=== PATIENT | female | born 1990 | race Caucasian/White ===

== ENCOUNTER → 2021-12-22 09:41 | Outpatient (CLI) | payer OTHER, SELFPAY ==
[2021-12-22 18:46] LABS: Add Manual Diff / Slide Review NO; Basophils Absolute Auto 0 /uL (0-100); Basophils Percent Auto 0.5 % (0-2); Eosinophils Absolute Auto 0 /uL (0-450); Hematocrit 41.9 % (36-46); Lymphocytes Absolute Auto 1200 /uL (1100-4500); Lymphocytes Percent Auto 28.6 % (25-40); Mean Corpuscular HGB Conc 33.4 % (30-36); Mean Corpuscular Hemoglobin 28.8 PG (26-34); Mean Corpuscular Volume 86.3 fL (80-100); Monocytes Absolute Auto 300 /uL (0-900); Monocytes Percent Auto 8.3 % (3-14); Neutrophils Absolute Auto 2600 /uL (1500-7000); Neutrophils Percent Auto 61.6 % (50-75); Platelet Count 336 X10^3/uL (150-400); Red Blood Cell Count 4.85 X10^6/uL (4.0-5.2); Red Cell Distribution Width 12.6 % (11.6-14.8); White Blood Cell Count 4.2 X10^3/uL (4.5-11.0)
[2021-12-22 19:11] LABS: Alanine Aminotransferase 43 IU/L (<35); Albumin 4.2 g/dL (3.5-5.0); Albumin Globulin Ratio 1.7 (1.0-2.8); Alkaline Phosphatase 59 U/L (38-126); Aspartate Aminotransferase 36 IU/L (14-36); BUN Creatinine Ratio 24.6 (6-22); Bilirubin Total 0.5 mg/dL (0.2-1.3); Blood Urea Nitrogen 14 mg/dL (7-17); Calcium 9.2 mg/dL (8.4-10.2); Carbon Dioxide 25 mmol/L (22-32); Chloride 104 mmol/L (98-107); Estimated Glomerular Filt Rate > 60 mL/min (>60); Globulin 2.5 g/dL (1.7-4.1); Glucose 77 mg/dL (70-100); HEMOLYSIS 17 (0-50); Potassium 4.4 mmol/L (3.4-5.1); Sodium 141 mmol/L (137-145); Total Protein 6.7 g/dL (6.3-8.2)
[2021-12-22 19:50] LABS: TSH w/ Reflex to FT4 1.77 uIU/mL (0.47-4.68)
== END ==
PROVIDERS: PCP Family Medicine; Visit Provider Physician Assistant
DX: B37.9 Candidiasis, unspecified (principal); G44.40 Drug-induced headache, not elsewhere classified, not intractable; R53.83 Other fatigue
CPT/HCPCS: 80053; 84443; 85025

== ENCOUNTER → 2022-07-26 10:24 | Outpatient (CLI) | payer OTHER, SELFPAY ==
[2022-07-26 19:13] LABS: Add Manual Diff / Slide Review NO; Basophils Absolute Auto 0 /uL (0-100); Basophils Percent Auto 0.7 % (0-2); Eosinophils Absolute Auto 0 /uL (0-450); Eosinophils Percent Auto 0.9 % (2-4); Hematocrit 40.7 % (36-46); Hemoglobin 13.5 g/dL (12.0-16.0); Lymphocytes Absolute Auto 1300 /uL (1100-4500); Lymphocytes Percent Auto 34.4 % (25-40); Mean Corpuscular HGB Conc 33.3 % (30-36); Mean Corpuscular Hemoglobin 28.2 PG (26-34); Mean Corpuscular Volume 84.8 fL (80-100); Monocytes Absolute Auto 400 /uL (0-900); Neutrophils Absolute Auto 2000 /uL (1500-7000); Platelet Count 336 X10^3/uL (150-400); Red Cell Distribution Width 12.6 % (11.6-14.8); White Blood Cell Count 3.8 X10^3/uL (4.5-11.0)
[2022-07-26 19:30] LABS: Alanine Aminotransferase 45 IU/L (<35); Albumin 4.1 g/dL (3.5-5.0); Albumin Globulin Ratio 1.5 (1.0-2.8); Alkaline Phosphatase 60 U/L (38-126); Aspartate Aminotransferase 37 IU/L (14-36); BUN Creatinine Ratio 17.2 (6-22); Bilirubin Total 0.4 mg/dL (0.2-1.3); Blood Urea Nitrogen 10 mg/dL (7-17); Calcium 8.8 mg/dL (8.4-10.2); Carbon Dioxide 26 mmol/L (22-32); Chloride 103 mmol/L (98-107); Estimated Glomerular Filt Rate > 60 mL/min (>60); Globulin 2.7 g/dL (1.7-4.1); Glucose 75 mg/dL (70-100); HEMOLYSIS < 15 (0-50); Potassium 4.1 mmol/L (3.4-5.1); Sodium 137 mmol/L (137-145); Total Protein 6.8 g/dL (6.3-8.2)
[2022-07-26 20:39] LABS: Ferritin 5 ng/mL (6-137)
== END ==
PROVIDERS: PCP Family Medicine; Visit Provider Physician Assistant
DX: N92.1 Excessive and frequent menstruation with irregular cycle (principal)
CPT/HCPCS: 80053; 82728; 85025

== ENCOUNTER → 2022-08-22 08:54 | Outpatient (CLI) | payer OTHER, SELFPAY ==
--- NOTE | 2022-08-22 08:55 | DI.US.S_ITS ---
PROCEDURE: US ABDOMEN LIMITED INDICATIONS: ABNORMAL LFTS TECHNIQUE: Real-time focused scanning was performed of the abdomen, with image documentation. COMPARISON: None. FINDINGS: The liver is normal in size and demonstrates normal overall echogenicity. Within the left lobe of the liver, there is a 10 x 9 x 10 mm hyperechoic nodule without shadowing. No abnormal vascularity can be seen. No findings of gallstones or sludge are seen. The gallbladder wall is not thickened, measuring 3 mm or less. No specific pericholecystic fluid is seen. The sonographic Singh sign is negative. There is no biliary dilatation, the common bile duct measures 4 mm. No significant pancreatic abnormality is seen on these images. IMPRESSION: No significant abnormality is seen to explain the patient's presenting history. 1 cm apparent liver hemangioma within the left lobe. Dictated by: Lonny Khanna M.D. on 08/22/2022 at 13:59 Approved by: Lonny Khanna M.D. on 08/22/2022 at 14:00
[2022-08-22 10:47] LABS: HEMOLYSIS < 15 (0-50); Iron 55 ug/dL (37-170)
[2022-08-22 10:59] LABS: Percent Iron Saturation 15 % (15-50); Total Iron Binding Capacity 359 ug/dL (265-497); Transferrin 277 mg/dL (206-381)
[2022-08-22 11:18] LABS: TSH w/ Reflex to FT4 2.65 uIU/mL (0.47-4.68)
[2022-08-22 11:37] LABS: Hep C Virus Ab w/Reflex Quant NEGATIVE s/c (NEGATIVE)
[2022-08-23 04:57] LABS: Hepatitis B Core Antibody Negative (Negative)
[2022-08-23 07:07] LABS: HBsAg Screen Negative (Negative); Hepatitis A Antibody IgM Negative (Negative); Hepatitis B Core Antibody IgM Negative (Negative); Hepatitis C Antibody <0.1 s/co ratio (0.0-0.9)
== END ==
PROVIDERS: PCP Physician Assistant; Referring Provider Physician Assistant; Visit Provider Physician Assistant
DX: R74.8 Abnormal levels of other serum enzymes (principal)
CPT/HCPCS: 36415; 76705; 80074; 83540; 83550; 84443; 86704; 86803

== ENCOUNTER → 2022-10-09 14:19 | Outpatient (CLI) | payer OTHER, SELFPAY ==
[2022-10-09 19:01] LABS: Add Manual Diff / Slide Review NO; Basophils Absolute Auto 0 /uL (0-100); Basophils Percent Auto 0.4 % (0-2); Eosinophils Absolute Auto 100 /uL (0-450); Eosinophils Percent Auto 1.2 % (2-4); Hematocrit 39.7 % (36-46); Hemoglobin 13.2 g/dL (12.0-16.0); Lymphocytes Absolute Auto 1200 /uL (1100-4500); Lymphocytes Percent Auto 27.3 % (25-40); Mean Corpuscular HGB Conc 33.3 % (30-36); Mean Corpuscular Hemoglobin 27.6 PG (26-34); Mean Corpuscular Volume 82.8 fL (80-100); Monocytes Absolute Auto 300 /uL (0-900); Monocytes Percent Auto 7.7 % (3-14); Neutrophils Absolute Auto 2900 /uL (1500-7000); Neutrophils Percent Auto 63.4 % (50-75); Platelet Count 324 X10^3/uL (150-400); White Blood Cell Count 4.5 X10^3/uL (4.5-11.0)
[2022-10-09 22:28] LABS: Alanine Aminotransferase 41 IU/L (<35); Albumin Globulin Ratio 1.5 (1.0-2.8); Alkaline Phosphatase 58 U/L (38-126); Aspartate Aminotransferase 35 IU/L (14-36); BUN Creatinine Ratio 22.6 (6-22); Bilirubin Total 0.2 mg/dL (0.2-1.3); Blood Urea Nitrogen 12 mg/dL (7-17); Calcium 9.1 mg/dL (8.4-10.2); Carbon Dioxide 25 mmol/L (22-32); Chloride 102 mmol/L (98-107); Estimated Glomerular Filt Rate > 60 mL/min (>60); Globulin 2.7 g/dL (1.7-4.1); Glucose 110 mg/dL (70-100); HEMOLYSIS < 15 (0-50); Potassium 3.9 mmol/L (3.4-5.1); Sodium 137 mmol/L (137-145); Total Protein 6.7 g/dL (6.3-8.2)
[2022-10-09 23:03] LABS: Ferritin 6 ng/mL (6-137)
== END ==
PROVIDERS: PCP Physician Assistant; Visit Provider Physician Assistant
DX: G44.40 Drug-induced headache, not elsewhere classified, not intractable (principal); R74.8 Abnormal levels of other serum enzymes; R79.0 Abnormal level of blood mineral
CPT/HCPCS: 80053; 82728; 85025

== ENCOUNTER → 2022-11-09 14:10 | Outpatient (CLI) | payer OTHER, SELFPAY ==
[2022-11-09 20:20] LABS: Urine N gonorrhoeae NOT DETECTED
[2022-11-09 20:25] LABS: Urine Chlamydia NOT DETECTED
== END ==
PROVIDERS: PCP Physician Assistant; Visit Provider Specialist
DX: Z34.81 Encounter for supervision of other normal pregnancy, first trimester (principal); R74.8 Abnormal levels of other serum enzymes
CPT/HCPCS: 87086; 87491; 87591

== ENCOUNTER → 2022-11-09 15:06 | Outpatient (CLI) | payer OTHER, SELFPAY ==
[2022-11-09 15:57] LABS: Add Manual Diff / Slide Review NO; Basophils Absolute Auto 0 /uL (0-100); Basophils Percent Auto 0.2 % (0-2); Eosinophils Absolute Auto 100 /uL (0-450); Eosinophils Percent Auto 0.9 % (2-4); Hematocrit 40.1 % (36-46); Hemoglobin 13.8 g/dL (12.0-16.0); Lymphocytes Absolute Auto 1300 /uL (1100-4500); Mean Corpuscular HGB Conc 34.4 % (30-36); Mean Corpuscular Hemoglobin 28.3 PG (26-34); Mean Corpuscular Volume 82.2 fL (80-100); Monocytes Absolute Auto 500 /uL (0-900); Monocytes Percent Auto 7.8 % (3-14); Neutrophils Absolute Auto 4200 /uL (1500-7000); Neutrophils Percent Auto 69.1 % (50-75); Platelet Count 305 X10^3/uL (150-400); Red Blood Cell Count 4.87 X10^6/uL (4.0-5.2); Red Cell Distribution Width 13.6 % (11.6-14.8)
[2022-11-09 16:24] LABS: Alanine Aminotransferase 44 IU/L (<35); Aspartate Aminotransferase 40 IU/L (14-36); BUN Creatinine Ratio 17.9 (6-22); Blood Urea Nitrogen 7 mg/dL (7-17); Estimated Glomerular Filt Rate > 60 mL/min (>60)
[2022-11-09 17:03] LABS: Hepatitis B Surface Antigen NEGATIVE s/c (NEGATIVE)
[2022-11-09 17:16] LABS: HIV 1 & 2 Ab/Ag 4th Gen Combo NEGATIVE (NEGATIVE); Hep C Virus Ab w/Reflex Quant NEGATIVE s/c (NEGATIVE)
[2022-11-10 08:36] LABS: Varicella IgG Antibody 1534 index (Immune >165)
[2022-11-11 09:36] LABS: RPR Screen Non Reactive (Non Reactive)
== END ==
PROVIDERS: Obstetrics & Gynecology; PCP Physician Assistant; Referring Provider Specialist; Visit Provider Specialist
DX: O99.891 Other specified diseases and conditions complicating pregnancy (principal); R74.8 Abnormal levels of other serum enzymes
CPT/HCPCS: 36415; 80055; 82565; 84450; 84460; 84520; 86787; 86803; 86850; 86900; 86901; 87086; 87389; 87491; 87591

== ENCOUNTER → 2023-01-11 15:44 | Outpatient (CLI) | payer OTHER, SELFPAY ==
[2023-01-13 18:42] LABS: AFP Value 25.2 ng/mL (.); Gest Age on Col Date 16.7 weeks (.); Insulin Dep Diabetes No (.); OSBR Risk 1IN 10000 (.); Results Report (.); Test Results *Screen Negative* (.)
== END ==
PROVIDERS: Obstetrics & Gynecology; PCP Physician Assistant; Referring Provider Obstetrics & Gynecology; Visit Provider Obstetrics & Gynecology
DX: Z34.82 Encounter for supervision of other normal pregnancy, second trimester (principal); Z3A.16 16 weeks gestation of pregnancy
CPT/HCPCS: 36415; 82105

== ENCOUNTER → 2023-02-07 15:48 | Outpatient (CLI) | payer OTHER, SELFPAY ==
--- NOTE | 2023-02-07 16:34 | DI.US.S_ITS ---
PROCEDURE: US OB >= 14 WEEKS FETUS INDICATIONS: anatomy scan OUTSIDE/PRIOR DATING DATA: First dating scan (date and location): 11/09/2022 Estimated date of delivery (STELLA) from first dating scan: 06/25/2023 The calculations are made using the working STELLA of 06/23/2023 TECHNIQUE: Real-time scanning was performed of the fetus, with image documentation and biometric measurements. Endovaginal scanning: Not performed COMPARISON: [facility], , OB <= 14 WEEKS FETUS, 11/09/2022, 14:58. FINDINGS: General: A single living intrauterine gestation is present. Presentation: Vertex Placenta: Placental position is posterior, without previa. Amniotic fluid index: 13.1 cm, normal range is 5-24 cm. Single deepest vertical pocket is 3.8 cm. heart rate: 152 beats per minute. Maternal cervical canal: 3.5 cm long. Normal lower limit is 2.5 cm. biometrics: Biparietal diameter: 4.9 cm, 20 weeks 5 days Head circumference: 70.5 cm, 20 weeks 0 days Abdominal circumference: 14.7 cm, 20 weeks 0 days Femur length: 3.5 cm, 20 weeks 1 day Clinically estimated gestational age: 20 weeks 4 days Composite gestational age from present scan: 20 weeks 2 days Estimated weight and percentile: 331 g, 21st percentile Anatomic survey: Neuro: Ventricles are non-dilated at less than 10 mm. Cisterna magna is normal at 3-11 mm. Cerebellum is normal in size and morphology. Nuchal skin fold: Normal at less than 6 mm between 14-21 weeks gestational age. Face: Nose and lips, facial profile are normal. Spine: No evidence for spina bifida. Heart: 4-chambered heart is present, with normal ventricular outflow tracts. Diaphragm: Diaphragm is intact. Stomach: Left-sided stomach is present. Kidneys: No hydronephrosis. Normal is less than 5 mm in 2nd trimester, less than 7 mm in 3rd trimester. Cord: 3-vessel cord has orthotopic insertion. Bladder: Normal in size. Extremities: All 4 extremities identified. Maternal intrauterine fibroid noted in the anterior uterus measuring 4.1 x 1.8 x 3.2 cm. IMPRESSION: 1. Single live intrauterine . 2. anatomic survey is within normal limits. We strive to produce accurate, complete, and clear reports of imaging services. To assist us in improving patient care, this report was composed using standard report templates and voice recognition software. Therefore, it may contain abnormal punctuation, insertions and/or omissions. Occasional wrong-word or sound-alike substitutions may occur. Though we review the report and make efforts to correct it, we do recommend that the report be read carefully in proper context to recognize any text inaccuracies. Approved by: Sarbjit Kennedy M.D. on 02/08/2023 at 9:19
== END ==
PROVIDERS: PCP Physician Assistant; Referring Provider Obstetrics & Gynecology; Visit Provider Obstetrics & Gynecology
DX: O34.12 Maternal care for benign tumor of corpus uteri, second trimester (principal); D25.9 Leiomyoma of uterus, unspecified; Z3A.20 20 weeks gestation of pregnancy
CPT/HCPCS: 76811

== ENCOUNTER → 2023-03-20 10:13 | Outpatient (CLI) | payer OTHER, SELFPAY ==
[2023-03-20 12:57] LABS: Hematocrit 31.1 % (36-46); Hemoglobin 10.7 g/dL (12.0-16.0)
[2023-03-20 13:28] LABS: Alanine Aminotransferase 32 IU/L (<35); Aspartate Aminotransferase 33 IU/L (14-36); GTT (PREG) 1 Hour PP 50gm Dose 75 mg/dL (76-139)
== END ==
PROVIDERS: PCP Physician Assistant; Referring Provider Obstetrics & Gynecology; Visit Provider Obstetrics & Gynecology
DX: R79.89 Other specified abnormal findings of blood chemistry (principal); Z3A.26 26 weeks gestation of pregnancy
CPT/HCPCS: 36415; 82950; 84450; 84460; 85014; 85018

== ENCOUNTER → 2023-06-05 15:20 | Outpatient (CLI) | payer OTHER, SELFPAY ==
[2023-06-06 13:14] LABS: Strep Grp B PCR NEG for Grp B Strep
== END ==
PROVIDERS: PCP Family Medicine; Visit Provider Obstetrics & Gynecology
DX: Z34.83 Encounter for supervision of other normal pregnancy, third trimester (principal); Z3A.37 37 weeks gestation of pregnancy
CPT/HCPCS: 87653

== ENCOUNTER 2023-06-15 05:46 | Inpatient (IN) | payer OTHER, SELFPAY ==
[2023-06-15] VITALS (7 sets, daily range): BP systolic 113–138; BP diastolic 67–81; PULSE 72–100; RESP 12–15; TEMP 35.9–36.1; O2SAT 100
--- NOTE | 2023-06-15 | PATH_ITS ---
[facility] Accession Number: [id number] No. of containers..01 Tissue . 01 Material submitted: . fallopian tube - BILATERAL FALLOPIAN TUBES . 01 Diagnosis: A. Bilateral Fallopian Tubes, Bilateral Salpingectomy: Cross sections of bilateral fallopian tubes within normal limits. Negative for dysplasia and malignancy. MRV 06/27/2023 1255 Local . 01 Electronically signed: . Rosette Farrar MD, Pathologist NPI- [id number] . 01 Gross description: . The specimen is received in formalin labeled with the patient's name, , and bilateral fallopian tubes, consist of two unoriented, fimbriated fallopian tubes measuring 10.5 x 0.6 cm and 9.4 x 0.8 cm, respectively. Both tubes have violaceous, smooth serosa with small cystic structures measuring 0.1 cm in greatest dimension filled with cloudy serous fluid. Sectioning reveals unremarkable stellate lumens. Wildlife Control Agent sections to include one-half of the bisected fimbria and cross sections are submitted as follows: A1: Longer fallopian tube. A2: [place] fallopian tube. ([id number]) /MRV 06/19/2023 1437 Local . 01 Pathologist provided ICD-10: Z30.2 . 01 CPT . 974825 Specimen Comment: A courtesy copy of this report has been sent to [phone] Performed at: 01 [facility] [address] [place] [address], [place], [place] [id number] MD Nito Smith MD Phone: [phone]
[2023-06-15 06:54] LABS: Add Manual Diff / Slide Review NO; Basophils Absolute Auto 0 /uL (0-100); Basophils Percent Auto 0.4 % (0-2); Eosinophils Absolute Auto 0 /uL (0-450); Eosinophils Percent Auto 0.6 % (2-4); Hematocrit 30.2 % (36-46); Hemoglobin 10.4 g/dL (12.0-16.0); Lymphocytes Absolute Auto 1500 /uL (1100-4500); Lymphocytes Percent Auto 24.8 % (25-40); Mean Corpuscular HGB Conc 34.4 % (30-36); Mean Corpuscular Hemoglobin 28.5 PG (26-34); Mean Corpuscular Volume 82.9 fL (80-100); Monocytes Absolute Auto 500 /uL (0-900); Monocytes Percent Auto 8.9 % (3-14); Neutrophils Absolute Auto 4000 /uL (1500-7000); Neutrophils Percent Auto 65.3 % (50-75); Platelet Count 259 X10^3/uL (150-400); Red Blood Cell Count 3.64 X10^6/uL (4.0-5.2); Red Cell Distribution Width 15.7 % (11.6-14.8); White Blood Cell Count 6.1 X10^3/uL (4.5-11.0)
[2023-06-15] MEDS: CITRIC ACID/SODIUM CITRATE 15 ML SOLUTION 30 ML PO (07:27)
--- NOTE | 2023-06-15 07:31 | P.HPOB_ITS ---
OB HPI Date/Time Date of admission: 06/15/23 Date Patient Seen: 06/15/23 Time Patient Seen: 07:32 History of Present Condition Chief complaint: INPT STELLA Calculator 2 Estimated Delivery Date Method Current WG Current Estimate 06/23/23 Conception 38w 6d Other Estimates 06/25/23 Ultrasound #1 38w 4d Estimated Gestational Age (weeks): 39 : 3 Para: 1 care: good care, initiated at week # (7), number of visits (9) and pounds weight gain (36) Dating criteria OB: LMP confirmed by 1st trimester US Ultrasounds: normal 1st trimester US and normal mid trimester US Obstetrical complications: none Medical complications OB: none Indications Operative indications ( section): previous uterine surgery Preadmission Labs Last OB Lab Results: 2 Blood Type A Positive 11/09/22 15:24 Antibody Screen Negative 11/09/22 15:24 Hematocrit 30.2 % (36-46) L 06/15/23 06:15 Hemoglobin 10.4 g/dL (12.0-16.0) L 06/15/23 06:15 Hepatitis B Surface Antigen Negative s/c (NEGATIVE) 11/09/22 15 :24 Hepatitis C Antibody Negative s/c (NEGATIVE) 11/09/22 15:24 Rubella Antibody 102.0 IU/mL (>15) 11/09/22 15:24 Varicella-Zoster IgG Antibody 1534 index (Immune >165) 11/09/22 15:24 Glucose 1 Hour 75 mg/dL (76-139) L 03/20/23 10:20 Group B Streptococcus (PCR) Neg for grp b strep 06/05/23 15:20 -: Chlamydia screen: negative, Gonorrhea screen: negative and Urine: negative -: PAP smear: Normal Genetic Screens: Cell-free DNA: Normal (normal male) and Alpha-fetoprotein: Normal External Labs -: Urine: negative Prior (ies) Past Pregnancies Del. Date GA/Weeks Labor Lgth Wt Sex Route Outcome Anesthesia Place Delv Breastfeed Preg Comp Name 10/25/18 6 elective 12/14/20 41 20 7 lb 15 oz Male live - full term [place] Avery 16 months other induced hyper- [place] Shin Delivery Date: 10/25/18 Last Updated by: Bisi Sims RN D@C at [facility], no complications Delivery Date: 12/14/20 Last Updated by: Bisi Sims RN excessive vomiting, traumatic labor 2/2 malposition Evaluation Evaluation Baseline heart rate: 135 Variability: Moderate (11-25) monitor accelerations: Present Monitor Decelerations: Absent Status: Category l [facility] Medical History (Updated 05/24/23 @ 09:14 by Lucie Gael MD) Nexplanon removal Yeast infection Headache Chicken pox (~1992) Major depressive disorder, recurrent, moderate (~2009) Surgical History (Updated 01/22/23 @ 20:16 by Bethanie Mendoza MD) Ruth teeth extracted History of removal of skin mole Anesthesia History of mandibular surgery (~2012) deliv NOS-unsp (~12/14/20) Family History (Updated 10/24/22 @ 10:12 by Bisi Sims RN) Grandmother Stroke COPD (chronic obstructive pulmonary disease) Heavy smoker Grandmother Failure to thrive Mother Hypertension Social History marital status: unmarried,living together number of children: 1 household members: significant other and children lives independently: Yes caregiver/support person: Yes housing: house pets and animals: Yes (2 dogs; aware of precautions) education level: college (mirta's degree) 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) current occupational exposures/hazards: Yes (will stop using any pesticides/herbicides during ) special favian needs: No travel history: recent (domestic only) seatbelt use: always helmet use: Yes water heater temp set < 120 deg: Yes working smoke detector in home: Yes fire extinguisher in home: Yes carbon monox detector in home: Yes firearms in home: Yes firearms unloaded and locked: Yes do you feel safe at home: Yes Smoking Status: Never smoker second hand exposure: No alcohol intake: former (3-4/week when not ) substance use type: does not use during the past year weight has: remained stable well-balanced diet: about half the time daily servings fruits/ve-4 caffeine: Yes (1 cup coffee in AM) Type(s) of exercise: aerobic (rowing machine) and other (pilates) Meds Home Medications and Allergies Home Medications Medication Instructions Recorded Confirmed Type prenat.vits,willis,gga-muui-ekelv 1 tab PO DAILY 10/24/22 06/05/23 History aspirin 81 mg tablet,delayed 81 mg PO DAILY 01/23/23 06/05/23 History release venlafaxine 37.5 mg 37.5 mg PO DAILY #90 caps 05/24/23 06/05/23 Rx capsule,extended release 24 hr Allergies Allergy/AdvReac Type Severity Reaction Status Date / Time etonogestrel [From Nexplanon] AdvReac Severe Headache Verified 06/05/23 15:13 OB Exam Narrative Exam Narrative: HEENT: No thyromegaly, no anterior cervical or supraclavicular lymphadenopathy. Lungs:Clear to auscultation bilaterally, no wheezes. Cardiovascular: Regular rate and rhythm, no murmurs, rubs, or gallops. Abdomen: Well-healed keloid scar. No hepatosplenomegaly. No masses palpable. Fundal height: 38 cm Estimated weight: 7-1/2 lb Extremities: No edema Objective Labs 06/15/23 06:15 Labs: Laboratory Results - last 24 hr 06/15/23 06:15 WBC 6.1 RBC 3.64 L Hgb 10.4 L Hct 30.2 L MCV 82.9 MCH 28.5 MCHC 34.4 RDW 15.7 H Plt Count 259 Neut % (Auto) 65.3 Lymph % (Auto) 24.8 L Webb % (Auto) 8.9 Eos % (Auto) 0.6 L Baso % (Auto) 0.4 Neut # (Auto) 4000 Lymph # (Auto) 1500 Webb # (Auto) 500 Eos # (Auto) 0 Baso # (Auto) 0 Assessment and Plan Assessment and Plan Assessment and Plan narrative: Assessment: 33-year-old 3 para 1 at estimated gestational age of 39 weeks Previous section Keloid scar Desires permanent sterilization Plan: Repeat section Keloid scar revision Bilateral salpingectomy The risks, benefits, and alternatives to the procedure were explained to the patient. The risks including bleeding, infection, injury to the bowel, bladder, or ureters. She understands these risks and agrees to proceed. A full par Q was held and consent form was signed. Time Spent with Patient Total time spent with greater than 50% in coordination of care (as documented) at patient's floor/unit and/or counseling patient:: 15-24 minutes
--- NOTE | 2023-06-15 07:38 | PM.PREOP ---
Pre-operative Note Interval Note History & Physical reviewed/Exam performed by Physician: Yes Changes to H&P: No H&P completed within 30 days and has changed as indicated here:: 06/15/23
[2023-06-15] MEDS: CEFAZOLIN 2 GM/100 ML PREMIX 100 ML IV (08:00)
[2023-06-15] MEDS: ACETAMINOPHEN IV 1,000 MG/100 ML VIAL 400 MG IV (08:10)
--- NOTE | 2023-06-15 08:16 | SUR.OPER ---
Supine on Padded OR bed, head on pillow, safety belt at thigh, arms secured on padded arm boards at <90 degrees abduction. Bump under right buttock. Legs uncrossed with pillow under knees, gel pad to heels, tape over blanket to lower legs.
--- NOTE | 2023-06-15 08:45 | SUR.OPER ---
Viable baby boy born at 0820. Placenta delivered at 0823. Initialy APGARS 7 & 8. Cord blood and placenta given to OB FOOD SCIENCE TECHNICIAN.
[2023-06-15] MEDS: LACTATED RINGERS 1,000 ML 999 ML IV (09:03)
[2023-06-15] MEDS: TRIAMCINOLONE 40 MG/ML VIAL IM (09:04)
--- NOTE | 2023-06-15 09:20 | PM.OBCS.1 ---
Operative Date/Time/Diagnoses Date of procedure: 06/15/23 Time of procedure: 09:20 Pre-op diagnosis: Estimated gestational age of 39 weeks Previous section Keloid scar Desires permanent sterilization Post-op diagnosis: same Procedure & Clinicians Procedure: Repeat low-transverse section Keloid scar revision Bilateral salpingectomy Same procedure as scheduled: Yes Indications: 33-year-old 3 para 1 at estimated gestational age of 39 weeks with a prior section. She also has a keloid scar of the incision. She desires permanent sterilization. Surgeon: Bethanie Mendoza Click Yes if Unassisted: No Inspector Air Carrier: Yue Mcdermott Reason for Inspector Air Carrier: The certified physician assistant was necessary to retract upon entry into the abdomen and uterus. She assisted with delivery of the with fundal pressure. She assisted with closure with retraction, clipping of suture, and closure of the contralateral fascia. Anesthesia Type: Spinal (With Duramorph) Operative Notes Findings: Live male infant in the LOT presentation Normal tubes and ovaries Omental to anterior abdominal wall adhesions Closure Type: primary Specimen(s): cord blood, placenta and tubes/segments of tubes Intraoperative meds administered: Duramorph, Ketorolac and Pitocin Applied: Catheter (To continuous drainage) Estimated Blood Loss (mL): 350 Blood products transfused: none Procedure in detail: The patient was taken to the operating room where she was placed in the seated position. Spinal anesthesia with Duramorph was administered. The patient was then placed in the dorsal supine position with a leftward tilt. She was prepped and draped in the usual sterile fashion. A timeout was performed. After spinal analgesia was found to be adequate, the previous Pfannenstiel keloid scar was excised in an elliptical fashion. The incision was then sharply carried through to the underlying layer fascia. The fascia was nicked in the midline, and the incision extended bilaterally with the Linn scissors. The superior aspect of the fascial incision was grasped with a Billings clamps, elevated, and the underlying rectus muscles dissected off sharply and bluntly. Attention was then turned to the inferior aspect of this incision which in a similar fashion was grasped with a Jany clamps, elevated, and the underlying rectus muscles dissected off sharply and bluntly. The rectus muscles were in the midline. The peritoneum was identified, grasped between 2 hemostats, and entered sharply with the Metzenbaum scissors. This incision was extended superiorly and inferiorly with good visualization of the bladder. The bladder blade was inserted. The vesicouterine peritoneum was identified, grasped with the pickup, and entered sharply with the Metzenbaum scissors. This incision was extended bilaterally, and the bladder flap was created digitally. The bladder blade was reinserted. The lower uterine segment was incised in a transverse fashion with the scalpel. Upon entering the amniotic sac there was moderate amount of clear amniotic fluid. The 's head was delivered without difficulty. The nose and mouth were suctioned with bulb suction. The remainder of the body delivered without difficulty. The cord was double clamped and cut after 1 minute. The infant was handed off to waiting RN and RT. The placenta was delivered by expression. The uterus was cleared of all clots and debris. The uterine incision was repaired with #1 chromic in a running interlocking fashion, and a second layer the same suture was used for an imbricating layer. Hemostasis was achieved. The tubes and ovaries were examined and were found to be normal. The gutters were cleared of all clots and debris. The left tube was grasped with a [place]. Using the LigaSure, the mesosalpinx was cauterized and cut all the way down to the cornua of the uterus. The tube was amputated at the cornua. This was repeated on the patient's right side. The bladder flap was reapproximated using 2-0 Vicryl in a running fashion. The parietal peritoneum was closed using 2-0 Vicryl in a running fashion. The fascia was reapproximated using 0 Vicryl in a running fashion. The subcutaneous layer was copiously irrigated with warm normal saline. 6 simple interrupted sutures of 3-0 Vicryl were placed to reapproximate the subcutaneous layer. The skin was closed with 4-0 Monocryl in a subcuticular fashion. 10 cc ofa 30 mg of Kenalog in 30 cc of saline solution were injected subcutaneously with 1 mg approximately pr 1 cm of tissue. Steri-Strips were placed. An Aquacel dressing was placed. The uterus was expressed of a small amount of old blood. Sponge, lap, and instrument counts were correct x-2. The patient tolerated the procedure well, and was taken to PACU in stable condition. Complications: none Baby 1: Gender: Male Presentation: vertex Position: Left Occiput Anterior Placental Delivery Description: Expressed Cord Vessel Description: 3 Vessels and Clamped/Cut (After 1 minute) score (1 min): 7 score (5 min): 8 weight: 7 lb 14.5 oz Post-operative Condition: stable Disposition: PACU Aftercare: routine postop
[2023-06-15] MEDS: KETOROLAC 30 MG/ML VIAL IV ×3 (09:40→21:34)
[2023-06-15] MEDS: OXYCODONE IR 5 MG TABLET PO (10:42)
[2023-06-15] MEDS: VENLAFAXINE ER 37.5 MG CAP PO (10:45)
[2023-06-15] MEDS: LACTATED RINGERS 1,000 ML 125 ML IV (10:53)
[2023-06-15] MEDS: OXYCODONE IR 10 MG TABLET PO (12:52)
[2023-06-15] MEDS: ACETAMINOPHEN 325 MG TABLET 650 MG PO (21:34)
[2023-06-16] MEDS: ACETAMINOPHEN 325 MG TABLET 650 MG PO ×4 (03:32→22:05)
[2023-06-16] MEDS: KETOROLAC 30 MG/ML VIAL IV (03:32)
[2023-06-16] MEDS: OXYCODONE IR 5 MG TABLET PO ×5 (03:43→23:11)
[2023-06-16 06:42] LABS: Add Manual Diff / Slide Review NO; Basophils Absolute Auto 0 /uL (0-100); Basophils Percent Auto 0.4 % (0-2); Eosinophils Absolute Auto 0 /uL (0-450); Eosinophils Percent Auto 0.1 % (2-4); Hemoglobin 9.7 g/dL (12.0-16.0); Lymphocytes Absolute Auto 1500 /uL (1100-4500); Lymphocytes Percent Auto 17.9 % (25-40); Mean Corpuscular HGB Conc 34.7 % (30-36); Mean Corpuscular Volume 83.7 fL (80-100); Monocytes Absolute Auto 700 /uL (0-900); Monocytes Percent Auto 8.3 % (3-14); Neutrophils Absolute Auto 6300 /uL (1500-7000); Neutrophils Percent Auto 73.3 % (50-75); Platelet Count 208 X10^3/uL (150-400); Red Blood Cell Count 3.35 X10^6/uL (4.0-5.2); White Blood Cell Count 8.7 X10^3/uL (4.5-11.0)
[2023-06-16] MEDS: IBUPROFEN 600 MG TABLET PO ×3 (09:21→22:06)
[2023-06-16] MEDS: PRENATAL VIT,CALC/IRON/FOLIC 1 TABLET 1 TAB PO (09:21)
[2023-06-16] MEDS: VENLAFAXINE ER 37.5 MG CAP PO (09:21)
[2023-06-16] MEDS: DOCUSATE 100 MG CAPSULE PO (09:21)
--- NOTE | 2023-06-16 18:40 | PM.OBPN.1 ---
Subjective - OB Subjective Patient comments: no complaints, pain well controlled, tolerating diet, flatus present and other (Voided without the catheter) [place] baby status: doing well and nursing well feeding status: exclusively breast feeding Date Patient Seen: 06/16/23 Time Patient Seen: 18:41 Interval history: Postop day # 1 status post repeat /salpingectomy/scar revision Exam Vital Signs (past 8 hours): Oxygen Delivery Method Room Air Oxygen Flow Rate 15 Narrative Exam Narrative: Generally: Patient is sitting up in bed, no acute distress Fundus: Firm at U -2 Extremities: Negative Homans, no edema Objective Labs 06/16/23 06:30 Labs: Laboratory Results - last 24 hr 06/16/23 06:30 WBC 8.7 RBC 3.35 L Hgb 9.7 L Hct 28.0 L MCV 83.7 MCH 29.0 MCHC 34.7 RDW 16.0 H Plt Count 208 Neut % (Auto) 73.3 Lymph % (Auto) 17.9 L [place] % (Auto) 8.3 Eos % (Auto) 0.1 L Baso % (Auto) 0.4 Neut # (Auto) 6300 Lymph # (Auto) 1500 [place] # (Auto) 700 Eos # (Auto) 0 Baso # (Auto) 0 Assessment & Plan Plan day: 1 plan OB: routine postop care Time Spent With Patient Time: Total time spent is greater than 50% in coordination of care (as documented) at patient's floor/unit and/or counseling patient: Time with patient: 15-24 minutes
[2023-06-17] MEDS: OXYCODONE IR 5 MG TABLET PO ×2 (03:18→07:57)
[2023-06-17] MEDS: IBUPROFEN 600 MG TABLET PO ×2 (04:16→09:39)
[2023-06-17] MEDS: ACETAMINOPHEN 325 MG TABLET 650 MG PO ×2 (04:16→09:39)
[2023-06-17] MEDS: PRENATAL VIT,CALC/IRON/FOLIC 1 TABLET 1 TAB PO (07:57)
[2023-06-17] MEDS: DOCUSATE 100 MG CAPSULE PO (07:57)
[2023-06-17] MEDS: VENLAFAXINE ER 37.5 MG CAP PO (09:13)
[2023-06-17 09:45] VITALS: BP 107/69; PULSE 83; RESP 12; TEMP 36.4
--- NOTE | 2023-06-17 18:51 | P.DS_ITS ---
Discharge Providers Provider Date of admission: 06/15/23 05:46 Discharge Date: 06/17/23 Primary care physician: Lucie Gale MD Consults: 06/15/23 10:32 Consult to Statistical Methods Professor Routine Comment: Discharge provider: Bethanie Mendoza MD Summary Hospital Course Date Patient Seen: 06/17/23 Time Patient Seen: 09:00 Diagnoses: 39 weeks gestation Previous C section Keloid scar Desires permanent sterilization Hospital Course: Patient is a 33 year old who presented on 06/15/23 for a scheduled Repeat C/S, bilateral salpingectomy and keloid scar revision. She underwent these procedures without complication. Her postoperative course was unremarkable. Perry was removed on 06/16/23 and she was able to void spontaneously. No N/V. Ambulating independently. going well. Baby required oxygen for a few hours after . Peripartum Data Infant Delivery Method: Section Procedures: Spinal anesthesia Repeat low transverse C section Keloid scar revision Bilateral salpingectomy complications: none [place] 1: Gender: Male Disposition of : home Status at Discharge Cognitive/behavioral status at discharge: oriented Functional status at discharge: independent ambulation Overall status at discharge: patient is progressing back to baseline Time Spent with Patient Time attestation: Total time spent providing and/or coordinating discharge services: Time spent: Less than 30 minutes Objective Labs 06/16/23 06:30 Exam Vital Signs (past 8 hours): Oxygen Delivery Method Room Air Oxygen Flow Rate 15 Narrative Exam Narrative: Generally: Sitting up in bed, NAD Fundus: Firm, U/-2 Incision: C/D/I with Aquacel Ext: No edema, neg Manpreet's Discharge Plan Discharge Plan Patient Disposition: Home Provider Discharge Comment: Call with fever, chills, redness or drainage around the incision, or bleeding vaginally more than a pad in an hour Ibuprofen 600 mg every 6 hours as needed Tylenol 650 mg every 6 hours as needed Discharge orders & Medications Prescriptions: New oxycodone 5 mg tablet 5 mg PO Q4H PRN (Reason: pain) Qty: 20 0RF Continued prenat.vits,willis,eph-kmdg-balei Tablet 1 tab PO DAILY venlafaxine 37.5 mg capsule,extended release 24hr 37.5 mg PO DAILY Qty: 90 3RF Discontinued aspirin 81 mg tablet,delayed release (DR/EC) 81 mg PO DAILY Follow up/Referrals: Bethanie Mendoza MD [Physician] - (Call Sunday morning to set up 6 week follow up ) Diet/Activity/Treatments Diet: Regular Activity: No heavy lifting Skin/Wound/Dressing Care Report to your healthcare provider any signs of infection, such as:: chills, fever, increased pain, unusual drainage and unusual redness Dressing: Remove using adhesive remover on Thursday June 22, 2023 Visit Report/Discharge Packet Instructions: DI for , DI for Prescription Opioid Use Stand Alone Forms: Discharge: Care, Patient Portal/API, Stroke Signs & Symptoms Discharge Data Primary Care Provider: Lucie Gale
== END 2023-06-17 09:45 | disposition home or self-care (01) | DRG 785 ==
PROVIDERS: Admitting Provider Obstetrics & Gynecology; PCP Family Medicine; Referring Provider Obstetrics & Gynecology; Visit Provider Obstetrics & Gynecology
PROC: 10D00Z1 Extraction of Products of Conception, Low, Open Approach (ICD-10-PCS; CPT 59514; principal; 2023-06-15 07:45)
DX: O34.211 Maternal care for low transverse scar from previous cesarean delivery (principal); Z30.2 Encounter for sterilization; O99.892 Other specified diseases and conditions complicating childbirth; L91.0 Hypertrophic scar; Z3A.39 39 weeks gestation of pregnancy; Z37.0 Single live birth
CPT/HCPCS: 36415; 58611; 59050; 59510; 59514; 85025; 86850; 86900; 86901; J0131; J0690; J1100; J1885; J2274; J2405

== ENCOUNTER → 2024-04-22 07:27 | Outpatient (CLI) | payer OTHER, SELFPAY ==
--- NOTE | 2024-04-22 07:28 | DI.US.S_ITS ---
PROCEDURE: US ABDOMEN COMPLETE INDICATIONS: RUQ pain TECHNIQUE: Real-time scanning was performed of the abdominal and retroperitoneal organs, with image documentation. COMPARISON: , , US ABDOMEN LIMITED, 08/22/2022, 9:13. FINDINGS: Liver: Liver is normal in size and homogeneous in echotexture. Stable hyperechoic lesion within the left hepatic lobe measuring 9 x 9 x 12 millimeters, previously 10 x 9 x 10 millimeters, most consistent with a hemangioma. Gallbladder: No gallstones. No wall thickening. No pericholecystic edema. Negative sonographic Singh's sign. Biliary ducts: Intrahepatic bile ducts are non-dilated. Extrahepatic bile duct caliber measures 4.1 mm. Normal is 6-7 mm or less in diameter, or 10 mm or less post-cholecystectomy. Pancreas: Visualized portions of the pancreas are sonographically normal. Miscellaneous: No free abdominal fluid. IMPRESSION: 1. No cause for patient's pain is identified. Normal appearance of the gallbladder. 2. Stable hepatic hemangioma measuring 12 millimeters. Dictated by: Coy Luna M.D. on 04/22/2024 at 8:21 Approved by: Coy Luna M.D. on 04/22/2024 at 8:23
[2024-04-22 08:53] LABS: Add Manual Diff / Slide Review NO; Basophils Absolute Auto 0 /uL (0-100); Basophils Percent Auto 0.8 % (0-2); Eosinophils Absolute Auto 0 /uL (0-450); Hematocrit 40.6 % (36-46); Hemoglobin 13.8 g/dL (12.0-16.0); Lymphocytes Absolute Auto 1300 /uL (1100-4500); Lymphocytes Percent Auto 32.1 % (25-40); Mean Corpuscular HGB Conc 33.9 % (30-36); Mean Corpuscular Volume 85.4 fL (80-100); Monocytes Absolute Auto 400 /uL (0-900); Monocytes Percent Auto 10.7 % (3-14); Neutrophils Absolute Auto 2200 /uL (1500-7000); Neutrophils Percent Auto 55.4 % (50-75); Platelet Count 238 X10^3/uL (150-400); Red Blood Cell Count 4.75 X10^6/uL (4.0-5.2); Red Cell Distribution Width 12.9 % (11.6-14.8); White Blood Cell Count 3.9 X10^3/uL (4.5-11.0)
[2024-04-22 09:08] LABS: Alanine Aminotransferase 36 IU/L (<35); Albumin 4.3 g/dL (3.5-5.0); Albumin Globulin Ratio 1.8 (1.0-2.8); Alkaline Phosphatase 49 U/L (38-126); Aspartate Aminotransferase 30 IU/L (14-36); BUN Creatinine Ratio 26.8 (6-22); Bilirubin Total 0.3 mg/dL (0.2-1.3); Blood Urea Nitrogen 15 mg/dL (7-17); Calcium 9.1 mg/dL (8.4-10.2); Carbon Dioxide 22 mmol/L (22-32); Chloride 109 mmol/L (98-107); Estimated Glomerular Filt Rate > 60 mL/min (>60); Globulin 2.4 g/dL (1.7-4.1); Glucose 87 mg/dL (70-100); HEMOLYSIS < 15 (0-50); Potassium 4.2 mmol/L (3.4-5.1); Sodium 140 mmol/L (137-145); Total Protein 6.7 g/dL (6.3-8.2)
== END ==
PROVIDERS: PCP Family Medicine; Referring Provider Family Medicine; Visit Provider Family Medicine
DX: D18.09 Hemangioma of other sites (principal); R10.11 Right upper quadrant pain
CPT/HCPCS: 36415; 76705; 80053; 85025

== ENCOUNTER → 2024-06-04 09:45 | Outpatient (CLI) | payer OTHER, SELFPAY ==
[2024-06-04 19:44] LABS: HEMOLYSIS < 15 (0-50); Iron 115 ug/dL (37-170)
[2024-06-04 19:46] LABS: Cholesterol 178 mg/dL (140-199); HDL Cholesterol 43 mg/dL (40-60); LDL Cholesterol Calculated 119 mg/dL (<100); Triglycerides 81 mg/dL (35-150)
[2024-06-04 19:57] LABS: Percent Iron Saturation 34 % (15-50); Total Iron Binding Capacity 334 ug/dL (265-497); Transferrin 247 mg/dL (206-381)
[2024-06-04 20:19] LABS: TSH w/ Reflex to FT4 1.41 uIU/mL (0.47-4.68)
[2024-06-04 20:21] LABS: Ferritin 9 ng/mL (6-137)
[2024-06-06 00:09] LABS: HBsAg Screen Negative (Negative); Hepatitis A Antibody IgM Negative (Negative); Hepatitis B Core Antibody IgM Negative (Negative); Hepatitis C Antibody Non Reactive (Non Reactive)
[2024-06-06 05:14] LABS: Ceruloplasmin 27.3 mg/dL (19.0-39.0)
[2024-06-11 14:39] LABS: ANA Screen, IFA Negative (.)
== END ==
PROVIDERS: PCP Family Medicine; Visit Provider Family Medicine
DX: R79.89 Other specified abnormal findings of blood chemistry (principal); R10.11 Right upper quadrant pain; R79.0 Abnormal level of blood mineral; Z13.29 Encounter for screening for other suspected endocrine disorder; Z13.6 Encounter for screening for cardiovascular disorders
CPT/HCPCS: 80061; 80074; 82390; 82728; 83540; 83550; 84443; 86038

== ENCOUNTER → 2024-09-19 11:44 | Outpatient (CLI) | payer OTHER, SELFPAY ==
[2024-09-19 18:13] LABS: Alanine Aminotransferase 31 IU/L (<35); Albumin 4.6 g/dL (3.5-5.0); Albumin Globulin Ratio 1.9 (1.0-2.8); Alkaline Phosphatase 46 U/L (38-126); Aspartate Aminotransferase 30 IU/L (14-36); Bilirubin Total 0.5 mg/dL (0.2-1.3); Bilirubin Unconjugated 0.3 mg/dL (0.0-1.1); Globulin 2.4 g/dL (1.7-4.1); HEMOLYSIS < 15 (0-50)
[2024-09-19 18:43] LABS: Ferritin 9 ng/mL (6-137)
== END ==
PROVIDERS: PCP Family Medicine; Visit Provider Family Medicine
DX: R79.0 Abnormal level of blood mineral (principal); R53.83 Other fatigue; R79.89 Other specified abnormal findings of blood chemistry; R10.11 Right upper quadrant pain; Z86.59 Personal history of other mental and behavioral disorders
CPT/HCPCS: 80076; 82728

== ENCOUNTER → 2025-01-12 09:57 | Outpatient (CLI) | payer OTHER, SELFPAY ==
[2025-01-12 19:22] LABS: Add Manual Diff / Slide Review NO; Basophils Absolute Auto 0 /uL (0-100); Basophils Percent Auto 0.6 % (0-2); Eosinophils Absolute Auto 100 /uL (0-450); Eosinophils Percent Auto 1.4 % (2-4); Hematocrit 41.1 % (36-46); Lymphocytes Absolute Auto 1300 /uL (1100-4500); Lymphocytes Percent Auto 36.1 % (25-40); Mean Corpuscular HGB Conc 34.1 % (30-36); Mean Corpuscular Hemoglobin 29.1 PG (26-34); Mean Corpuscular Volume 85.4 fL (80-100); Monocytes Absolute Auto 300 /uL (0-900); Monocytes Percent Auto 7.8 % (3-14); Neutrophils Absolute Auto 1900 /uL (1500-7000); Neutrophils Percent Auto 54.1 % (50-75); Platelet Count 292 X10^3/uL (150-400); Red Blood Cell Count 4.81 X10^6/uL (4.0-5.2); Red Cell Distribution Width 13.2 % (11.6-14.8); White Blood Cell Count 3.6 X10^3/uL (4.5-11.0)
[2025-01-12 19:34] LABS: HEMOLYSIS < 15 (0-50); Iron 87 ug/dL (37-170)
[2025-01-12 19:45] LABS: Vitamin D 25 Hydroxy (D3) 45.8 ng/mL (30.0-100.0)
[2025-01-12 19:46] LABS: Follicle Stimulating Hormone 6.31 mIU/mL; Percent Iron Saturation 26 % (15-50); Total Iron Binding Capacity 338 ug/dL (265-497); Transferrin 285 mg/dL (206-381)
[2025-01-12 20:02] LABS: Estradiol, Total 30.2 pg/mL
[2025-01-12 20:05] LABS: Ferritin 8 ng/mL (6-137)
[2025-01-12 20:27] LABS: Vitamin B12 359 pg/mL (239-931)
== END ==
PROVIDERS: PCP Family Medicine; Visit Provider Family Medicine
DX: Z39.1 Encounter for care and examination of lactating mother (principal); R79.0 Abnormal level of blood mineral; R61 Generalized hyperhidrosis; F33.1 Major depressive disorder, recurrent, moderate
CPT/HCPCS: 82306; 82607; 82670; 82728; 83001; 83540; 83550; 84443; 85025

== ENCOUNTER → 2025-05-05 11:12 | Outpatient (CLI) | payer OTHER, SELFPAY ==
[2025-05-05 19:52] LABS: Alanine Aminotransferase 28 IU/L (<35); Albumin 4.9 g/dL (3.5-5.0); Albumin Globulin Ratio 1.8 (1.0-2.8); Alkaline Phosphatase 44 U/L (38-126); Blood Urea Nitrogen 11 mg/dL (7-17); Calcium 9.7 mg/dL (8.4-10.2); Carbon Dioxide 28 mmol/L (22-32); Chloride 104 mmol/L (98-107); Estimated Glomerular Filt Rate > 60 mL/min (>60); Globulin 2.7 g/dL (1.7-4.1); Glucose 87 mg/dL (70-99); HEMOLYSIS < 15 (0-50); Potassium 4.5 mmol/L (3.4-5.1); Sodium 139 mmol/L (137-145); Total Protein 7.6 g/dL (6.3-8.2)
[2025-05-05 20:23] LABS: Ferritin 9 ng/mL (6-137)
== END ==
PROVIDERS: PCP Family Medicine; Visit Provider Family Medicine
DX: R79.0 Abnormal level of blood mineral (principal); R53.83 Other fatigue; R79.89 Other specified abnormal findings of blood chemistry
CPT/HCPCS: 80053; 82728

== ENCOUNTER → 2025-06-09 13:48 | Outpatient (CLI) | payer OTHER, SELFPAY ==
[2025-06-09 19:48] LABS: Ferritin 15 ng/mL (6-137)
[2025-06-11 20:36] LABS: Deamidated Gliadin Ab IgA 117 units (0-19); Deamidated Gliadin Ab IgG >150 units (0-19); Immunoglobulin A,Qn 106 mg/dL (87-352)
== END ==
PROVIDERS: PCP Family Medicine; Visit Provider Family Medicine
DX: R79.0 Abnormal level of blood mineral (principal); R53.83 Other fatigue; R19.8 Other specified symptoms and signs involving the digestive system and abdomen
CPT/HCPCS: 82728; 82784; 83516

== ENCOUNTER → 2025-07-30 11:17 | Outpatient (CLI) | payer OTHER, SELFPAY ==
--- NOTE | 2025-07-30 11:18 | DI.RAD.S_ITS ---
PROCEDURE: XR DEXA AXIAL SKELETON INDICATIONS: baseline bone density in pt w new dx of celiac COMPARISON: None. FINDINGS: Lumbar Spine: Bone mineral density 1.048 g/cm2, T score not applicable, Z-score 0.1. Left Femoral Neck: Bone mineral density is 0.755 g/cm2, T score not applicable. Z-score -0.6. Left Hip: Bone mineral density 0.835 g/cm2, T score not applicable, Z-score -0.8. Fracture Risk Calculation (when applicable): 10-year fracture risk of a major osteoporotic fracture 1.7 percent and of a hip fracture 0.1 percent. (T score greater or equal to -1.0 to: NORMAL) (T score from -1.1 to -2.4: OSTEOPENIA) (T score less than or equal to -2.5: OSTEOPOROSIS) IMPRESSION: Normal Follow-up guidelines as follows: Osteoporosis: Consider a repeat DEXA and Vertebral Fracture Assessment (VFA) exam in 2 years or sooner if medically necessary, to reassess this patient's status. Osteopenia: Consider a repeat DEXA in 2-3 years to reassess this patient's status, or if there is a new clinical indication. Normal: Consider a repeat DEXA in 5 years or sooner, or if there is a new clinical indication. All treatment decisions require clinical judgment and consideration of individual patient factors, including patient preferences, comorbidities, previous drug use, risk factors not captured in the FRAX model (e.g., frailty, falls, vitamin D deficiency, increased bone turnover, interval significant decline in bone density ) and possible under- or over-estimation of fracture risk by FRAX. In addition, the NOF Guide recommends that FDA-approved medical therapies be considered in postmenopausal women and men age >= 50 years with a: * Hip or vertebral (clinical or morphometric) fracture * T-score of <=-2.5 at the spine or hip * Ten-year fracture probability by FRAX of >= 3% for hip fracture or >=20% for major osteoporotic fracture. Dictated by: Varun Nguyen M.D. on 07/30/2025 at 13:10 Approved by: Varun Nguyen M.D. on 07/30/2025 at 13:12
[2025-07-30 13:02] LABS: Ferritin 18 ng/mL (6-137)
[2025-07-30 13:34] LABS: Folate 6.8 ng/mL (2.76-20.0)
[2025-07-30 14:52] LABS: Vitamin B12 424 pg/mL (239-931)
== END ==
LOC: RAD 11:18
PROVIDERS: PCP Family Medicine; Referring Provider Family Medicine; Visit Provider Family Medicine
DX: K90.0 Celiac disease (principal); E56.9 Vitamin deficiency, unspecified; R53.83 Other fatigue; R19.8 Other specified symptoms and signs involving the digestive system and abdomen; R79.0 Abnormal level of blood mineral
CPT/HCPCS: 36415; 77080; 82607; 82728; 82746

== ENCOUNTER → 2025-08-18 07:25 | Outpatient (CLI) | payer OTHER, SELFPAY ==
[2025-08-18 20:34] LABS: Calcium 24 Hour Urine 333 mg/day (100-300); Total Volume Urine 3000 mL
[2025-08-18 20:35] LABS: Creatinine 24 Hour Urine 1206 mg/day (800-1800); Total Volume Urine 3000 mL
== END ==
PROVIDERS: PCP Family Medicine; Referring Provider Family Medicine; Visit Provider Family Medicine
DX: K90.0 Celiac disease (principal); R79.0 Abnormal level of blood mineral
CPT/HCPCS: 82340; 82570